=== PATIENT | female | born 1975 | race Caucasian/White ===

== ENCOUNTER → 2017-08-07 13:10 | Outpatient (CLI) | payer BC, SELFPAY ==
[2017-08-07 14:28] LABS: Basophils % 0.6 % (0.1-2.0); Eosinophils # 0.1 K/mm3 (0.0-0.4); Hematocrit 46.6 % (37.0-47.0); Hemoglobin 15.6 g/dL (12.2-16.2); Lymphocytes # 1.8 K/mm3 (0.7-4.5); Lymphocytes % 25.4 K/mm3 (10-50); Mean Corpuscular HGB Conc 33.5 g/dL (31.8-35.4); Mean Corpuscular Hemoglobin 30.6 pg (27.0-31.2); Mean Corpuscular Volume 91.5 fl (81-99); Mean Platelet Volume 7.6 fl (7.4-10.4); Monocytes # 0.4 K/mm3 (0.1-1.0); Monocytes % 5.5 % (1.7-9.3); Neutrophils # 4.8 K/mm3 (1.8-7.8); Neutrophils % 67.5 % (37.0-80.0); Platelet Count 277 K/mm3 (142-424); Red Blood Count 5.09 M/mm3 (4.20-5.40); Red Cell Distribution Width 12.6 % (11.5-17.5); White Blood Count 7.2 K/mm3 (4.8-10.8)
[2017-08-07 15:09] LABS: Alanine Aminotransferase 22 U/L (12-78); Albumin/Globulin Ratio 1.1 (1.1-1.8); Alkaline Phosphatase 96 U/L (46-116); Aspartate Amino Transferase 19 U/L (15-37); Bilirubin,Total 0.3 mg/dL (0.2-1.0); Blood Urea Nitrogen 13 mg/dL (7-18); Calcium 9.1 mg/dL (8.5-10.1); Carbon Dioxide 31 mmol/L (21.0-32.0); Chloride 102 mmol/L (98-107); Creatinine,Serum 0.81 mg/dL (0.55-1.02); Estimated Glomerular Filt Rate 78 ml/min (>60); GFR (African American) 94 ML/MIN (>60); Globulin 3.6 gm/dl (1.3-3.2); Glucose 83 mg/dL (74-106); Sodium 141 mmol/L (136-145); Thyroid Stimulating Hormone 1.92 uIU/ml (0.358-3.740); Total Protein,Serum 7.6 gm/dL (6.4-8.2)
[2017-08-08 20:15] LABS: Vitamin B12 409 pg/mL (232-1245)
[2017-08-12 06:14] LABS: Vitamin D 25 Hydroxy 27.4 ng/mL (30.0-100.0)
== END ==
PROVIDERS: Visit Provider Physician Assistant
DX: I10 Essential (primary) hypertension (principal); R06.02 Shortness of breath; E55.9 Vitamin D deficiency, unspecified; E53.8 Deficiency of other specified B group vitamins; Z13.29 Encounter for screening for other suspected endocrine disorder
CPT/HCPCS: 36415; 80053; 82607; 82652; 84443; 85025

== ENCOUNTER → 2017-08-21 13:25 | Outpatient (CLI) | payer BC, SELFPAY ==
--- NOTE | 2017-08-21 13:39 | CA_ITS ---
PROCEDURE: 2-D M-mode and color Doppler study INDICATIONS FOR THE TEST: Chest pain X COPD Heart Murmur Tobacco Smoking Palpitations Fatigue Syncope Edema HypertensionXDiabetes Mellitus Rheumatic Fever SOB DOEXObesity Hyperlipidemia Family History HD Additional History PATIENT INFORMATION HEIGHT: 66 WEIGHT:172 GENDER: Female B/P:130/80 2-D/M-MODE INTERPRETATION: 2-D MEASUREMENTS OBSERVED VALUES IN CMS Right Ventricular Dimension (RVDd) 2.1 Interventricular Septum (Thickness)(IVsd) .9 Left Ventricular Internal Dimensions(LVIDd) 4.5 Left Ventricular Posterior Wall (Thickness)(LVPWd) 1.0 Aortic Root 2.5 Aortic Cusp Separation 1.8 Left Atrial Dimensions (LAD) 2.5 2D 1. Left atrium is qualitatively mildly enlarged, left ventricle is normal size, there is no concentric left ventricular hypertrophy, visually estimated ejection fraction approximately 50% with no obvious regional wall motion abnormality. 2. The right atrium and right ventricle are normal size and contractility. 3. The aortic valve is minimally thickened and fibrosed. 4. The mitral and tricuspid valve are grossly normal. 5. The pulmonic valve is poorly visualized. 6. No significant pericardial effusion noted. DOPPLER INTERROGATION: Doppler interrogation of the aortic, mitral and tricuspid valvular presence of mild mitral and tricuspid regurgitation, tricuspid and jet velocity is insufficient for calculation of the right ventricular systolic pressure, diastolic parameters are inconclusive. CONCLUSION: 1. Normal left ventricular size, preserved left ventricular systolic function, visually estimated ejection fraction 50% with no obvious regional wall motion abnormality. Diastolic parameters are inconclusive. 2. Mild mitral and tricuspid regurgitation 3. No significant pericardial effusion noted.
== END ==
PROVIDERS: Family Provider Family Medicine; PCP Family Medicine; Visit Provider Family Medicine
DX: R07.9 Chest pain, unspecified (principal)
CPT/HCPCS: 93017; 93306

== ENCOUNTER → 2019-04-22 09:27 | Outpatient (CLI) | payer BC, SELFPAY ==
[2019-04-22 11:09] LABS: Alanine Aminotransferase 8 U/L (12-78); Albumin Level 3.6 gm/dL (3.4-5.0); Albumin/Globulin Ratio 1.2 (1.1-1.8); Alkaline Phosphatase 60 U/L (46-116); Anion Gap 11.1 mEq/L (5-15); Aspartate Amino Transferase 9 U/L (15-37); Bilirubin,Total 0.3 mg/dL (0.2-1.0); Blood Urea Nitrogen 17 mg/dL (7-18); Calcium 8.6 mg/dL (8.5-10.1); Carbon Dioxide 26 mmol/L (21.0-32.0); Chloride 104 mmol/L (98-107); Chol/HDL Ratio 3.1 (1-3.5); Cholesterol 157 mg/dL (140-200); Creatinine,Serum 0.82 mg/dL (0.55-1.02); Estimated Glomerular Filt Rate 76 ml/min (>60); GFR (African American) 92 ML/MIN (>60); Glucose 90 mg/dL (74-106); HDL Cholesterol 50 mg/dL (29-89); LDL Cholesterol 94 mg/dL (0-130); Potassium 4.1 mmoL/L (3.5-5.1); Sodium 137 mmol/L (136-145); Thyroid Stimulating Hormone 1.16 uIU/ml (0.358-3.740); Total Protein,Serum 6.6 gm/dL (6.4-8.2); Triglycerides 67 mg/dL (30-200); VLDL Cholesterol 13 mg/dL (0-40)
[2019-04-24 17:59] LABS: Vitamin D 25 Hydroxy 39.6 ng/mL (30.0-100.0)
[2019-04-24 18:01] LABS: Vitamin B12 584 pg/mL (232-1245)
== END ==
PROVIDERS: Visit Provider Physician Assistant
DX: I10 Essential (primary) hypertension (principal); E53.8 Deficiency of other specified B group vitamins; E55.9 Vitamin D deficiency, unspecified; Z13.220 Encounter for screening for lipoid disorders; Z13.29 Encounter for screening for other suspected endocrine disorder
CPT/HCPCS: 36415; 80053; 80061; 82607; 82652; 84443

== ENCOUNTER → 2019-05-12 08:06 | Outpatient (CLI) | payer BC, SELFPAY ==
--- NOTE | 2019-05-12 08:10 | MM_ITS ---
PROCEDURE: MM DIG SCREENING MAMM BI W/CAD CLINICAL INDICATION: SCREENING History of breast cancer in the patient's maternal aunt. COMPARISON: None, this is baseline study TECHNIQUE: Standard CC and MLO images and 3D Tomosinthisis was obtained. R2 CAD reviewed. FINDINGS: Moderate scattered fibroglandular densities are seen throughout both breast and the findings of bilateral and symmetrical. Nasim images were review showing no suspicious abnormality. There are no suspicious microcalcifications. There are several small nodes in both axilla. IMPRESSION: Moderate diffuse breast density with no suspicious lesions seen BI-RAD Category: 1 Negative FOLLOW-UP: 1YR 1 Year Follow-up (A letter has been sent to the patient regarding results of the study.) Dictated by: Dr. Ankit Gerard MD 05/12/2019 08:[address] Ankit Gerard MD in [place] 05/12/2019 08:52
== END ==
PROVIDERS: PCP Family Medicine; Visit Provider Physician Assistant
DX: Z12.31 Encounter for screening mammogram for malignant neoplasm of breast (principal)
CPT/HCPCS: 77063; 77067

== ENCOUNTER → 2020-04-27 10:36 | Outpatient (CLI) | payer BC, SELFPAY ==
[2020-04-27 12:10] LABS: Alanine Aminotransferase 14 U/L (12-78); Albumin Level 4.4 g/dl (3.5-5.0); Albumin/Globulin Ratio 1.4 (1.1-1.8); Alkaline Phosphatase 71 U/L (38-126); Anion Gap 11.3 mEq/L (5-15); Aspartate Amino Transferase 21 U/L (14-36); Bilirubin,Total 0.6 mg/dl (0.2-1.3); Blood Urea Nitrogen 18 mg/dl (7-17); Calcium 9.7 mg/dl (8.4-10.2); Carbon Dioxide 30 mmol/L (22.0-30.0); Chloride 100 mmol/L (98-107); Estimated Glomerular Filt Rate 68 ml/min (>60); GFR (African American) 82 ML/MIN (>60); Globulin 3.2 g/dL (1.3-3.2); Glucose 93 mg/dl (74-100); Potassium 4.3 mmoL/L (3.5-5.1); Sodium 137 mmol/L (136-145); Total Protein,Serum 7.6 g/dl (6.3-8.2)
[2020-04-27 12:27] LABS: 25-OH Vitamin D, Total 31.8 ng/mL (30-100)
[2020-04-27 13:00] LABS: Vitamin B12 898 pg/mL (239-931)
== END ==
PROVIDERS: Visit Provider Physician Assistant
DX: I10 Essential (primary) hypertension (principal); E53.8 Deficiency of other specified B group vitamins; E55.9 Vitamin D deficiency, unspecified
CPT/HCPCS: 36415; 80053; 82306; 82607

== ENCOUNTER → 2023-01-07 07:19 | Outpatient (CLI) | payer BC, SELFPAY ==
--- NOTE | 2023-01-07 07:31 | CA_ITS ---
FINAL REPORT CLINICAL HISTORY: lle edema, calf pain. edema resolved now COMPARISON: None FINDINGS: DUPLEX VENOUS SONOGRAPHY OF THE LEFT LOWER EXTREMITY Multiple transverse and longitudinal scans were performed of the femoropopliteal deep venous system, with augmentation and compression maneuvers. HISTORY: Pain and edema FINDINGS: Normal phasic flow was noted in the visualized deep venous system. No intraluminal increased echogenicity is noted to suggest thrombus. There is normal compression and augmentation of the venous structures. No abnormal venous collaterals are seen. IMPRESSION: No evidence of deep venous thrombosis of the left lower extremity. Reviewed, Interpreted and Dictated by Ynes Bettencourt MD Transcribed by Liset Coelho Authenticated and [facility]
--- NOTE | 2023-01-07 08:49 | CA_ITS ---
APPROVED REPORT Exam: Exercise Treadmill Technologist: Andie Peterson Ht: 5 ft 6 in Wt: 178 lbs BSA: 1.90 m2 HR: 66 bpm BP: 141/88 mmHg Rhythm: NSR Indications: Shortness of Air, LLE edema, Headaches Medical History Medications: Lisinopril/HCTZ,,,,, Stress Test Details Test: Ari HR Resting HR: 77 bpm Max Heart Rate (APMHR): 173 bpm Max HR Achieved: 149 bpm Target HR (85% APMHR): 147 bpm % of APMHR: 86 Recovery HR: 100 bpm HR response to stress: Normal HR response to stress BP Resting BP: 141.0/88.0 mmHg Max BP: 173.0/84.0 mmHg Recovery BP: 158.0/86.0 mmHg BP response to stress: Normal blood pressure response to stress. ECG Resting ECG: Normal sinus rhythm Stress EC.[address] depression Arrhythmia: None Recovery ECG: Return to baseline within 3 minutes of recovery Recovery Arrhythmia: None Clinical Exercise duration: 09:00 min Highest Stage Achieved: Exercise capacity: 10.1 METs Overall Exercise Capacity for Age: Average Stress ECG Conclusion The patient was able to exercise for a total of 9 minutes, 0 seconds. She achieved a total of 10.1 METS. She has average exercise capacity compared to age and sex matched peers. Test stopped due to leg cramps. She has normal HR and BP response to exercise. Symptoms: No chest pain. Arrhythmias/Ectopy: Rare PVC ST-T Changes: 0.[address] depression Conclusion: Average exercise capacity. ECG stress test findings within normal. GXT only (no imaging). Test Summary REST . . . . . . . Sitting REST . . . . . . . Standing REST 03:32 0.0 0.0 77 . 141/ 88 . . Stage 1 01:00 10.0 1.7 103 . . . . Stage 1 02:00 10.0 1.7 113 . . . . Stage 1 03:00 10.0 1.7 120 . 158/ 80 . . Stage 2 01:00 12.0 2.5 135 . . . . Stage 2 02:00 12.0 2.5 133 . . . . Stage 2 03:00 12.0 2.5 137 . 172/ 80 . . Stage 3 01:00 14.0 3.4 142 . . . . Stage 3 02:00 14.0 3.4 143 . . . . Stage 3 03:00 14.0 3.4 146 . . . Stop exercise at 09:00 RECOVERY 01:00 0.0 0.0 122 . . . . RECOVERY 02:00 0.0 0.0 103 . 173/ 84 . . RECOVERY 03:00 0.0 0.0 99 . 173/ 84 . . RECOVERY 04:00 0.0 0.0 97 . 147/ 79 . . RECOVERY 05:00 0.0 0.0 99 . 158/ 86 . . RECOVERY 05:18 0.0 0.0 95 . 158/ 86 . . Electronically signed by : Deidre Clark MD 01/11/2023 23:16:24
== END ==
PROVIDERS: PCP Family Medicine; Visit Provider Nurse Practitioner Family
DX: R06.02 Shortness of breath (principal); R07.9 Chest pain, unspecified; R60.0 Localized edema
CPT/HCPCS: 93017; 93971

== ENCOUNTER → 2023-01-29 07:56 | Outpatient (CLI) | payer BC, SELFPAY ==
--- NOTE | 2023-01-29 08:02 | CA_ITS ---
APPROVED REPORT EXAM: Comprehensive 2D, Doppler, and color-flow Echocardiogram Distribution Accounting Clerk: Tish Aleman CRT Ht: 5 ft 6 in Wt: 178lbs BSA: 1.90 BP: 162/99 mmHg Indications: Chest Pain, Shortness of Breath, Peripheral Edema, Hypertension/HDD 2D Dimensions LVOT 2.02 cm (M/F) 1.5-2.5 LA Volume 26.30 mL LA Volume Index 13.50 mL/m2 (M/F) 16-34 M-Mode Dimensions RVDd 2.44 cm (0.9-2.6) LA Diam 2.95 cm (1.9-4.0) LVDd 4.38 cm (3.5-5.7) Ao Diam 3.52 cm (2.0-3.7) LVDs 3.16 cm (3.5-5.7) IVSd 1.22 cm (0.6-1.1) PWd 0.75 cm (0.6-1.1) EF (Teich) 54.30% FS 27.90% EDV (Teich) 86.80 mL TAPSE 2.55 (<1.7) ESV (Teich) 39.70 mL LV Diastology E Decel Time 203.00 (160-240 msec) E/A Ratio 1.45 MED E' 11.10 (< 7 cm/sec) MED A' 8.80 cm/s E'/MED E' Ratio 9.29 (>14) LAT E' 11.60 (<10 cm/sec) LAT A' 7.90 cm/s E/LAT E' Ratio 8.89 (>14) Aortic Valve AO Peak GR. 3.40 mmHg Mitral Valve MV A Velocity 71.00 (40-130 cm/s) E/A Ratio 1.45 MV Decel. Time 203.00 (160-240 ms) Pulmonary Valve PV Peak Velocity 112.00 (50-150 cm/s) Tricuspid Valve TR P. Velocity 172.00 cm/s RAP Estimate 10.00 mmHg RVSP 21.80 mmHg Left Ventricle The left ventricle is normal size. The left ventricular systolic function is normal. The left ventricular ejection fraction is within the normal range. There is normal left ventricular wall thickness. There is normal LV segmental wall motion. The left ventricular diastolic function is normal. LVEF is 55%. Right Ventricle The right ventricle is normal size. The right ventricular systolic function is normal. Atria The left atrium size is normal. The right atrium size is normal. There is no Doppler evidence of interatrial shunt. Aortic Valve The aortic valve opens well. There is no aortic valvular stenosis. Trace aortic regurgitation. Mitral Valve The mitral valve is normal in structure. No evidence of mitral valve stenosis. Trace mitral regurgitation. Tricuspid Valve Tricuspid valve leaflets are thin and pliable. Trace tricuspid regurgitation. There is insufficient TR jet to estimate RVSP. Pulmonic Valve The pulmonary valve is normal in structure. Trace pulmonic regurgitation. Great Vessels The aortic root is normal in size. The ascending aorta is normal in size. IVC is normal in size and collapses >50% with inspiration. Pericardium There is no pericardial effusion. Other Information Study Quality: Adequate Conclusion Normal biventricular systolic function. No significant valvular stenosis or regurgitation. Electronically signed by : Deidre Clark MD 01/31/2023 21:48:51
== END ==
PROVIDERS: PCP Family Medicine; Visit Provider Nurse Practitioner Family
DX: R06.02 Shortness of breath (principal); R07.9 Chest pain, unspecified; R60.0 Localized edema
CPT/HCPCS: 93306

== ENCOUNTER 2023-03-18 07:04 | Outpatient (CLI) | payer BC, SELFPAY ==
--- NOTE | 2023-03-18 07:11 | CT_ITS ---
APPROVED REPORT Sales And Leasing Consultant: CLINICAL INDICATION Chest Pain TECHNIQUE Image Acquisition: A 128 slice MDCT scanner ([employer] View) was used for data acquisition. A noncontrast coronary calcium scan was performed. A CT attenuation threshold of 130 Hounsfield units (HU) was used for the detection of calcium in contiguous voxels of 1 sq mm in area to be counted as individual lesions. Bolus tracking in the ascending aorta with a threshold of 180 HU was performed. Immediately afterwards, ECG synchronized cardiac CT was then performed from the cardiac base to apex using retrospective gating with ECG tube current modulation. A total of 85 mL of Isovue 370 mg/mL contrast medium was administered at 5 mL/sec followed by a saline flush using a biphasic injection protocol. A tube voltage of 120 KVp was used. The patient received the following medications prior to the cardiac CT. 100 mg of oral metoprolol The average heart rate at the time of acquisition was 47 bpm and regular. Image Reconstruction Transaxial images were reconstructed at 0.67 mm slide thickness. Data was reviewed interactively on an advanced workstation capable of 2 and 3-dimensional displays in all conventional reconstruction formats, including multiplanar reformations, maximum intensity projections, curved multiplanar reformations, and volume rendered reconstructions. When applicable, selected routine images describing the relevant coronary anatomy and pathology were saved and sent to PACS. Complications None Technical Quality Overall image quality was good. Coronary artery opacification was adequate. Total DLP (Dose-Length Product) is 1748.7 mGy-cm. The reported value represents the total of one or more individual components during the CT acquisition of this date and at this time, and as such, the same value may appear in more than one CT report depending on the interpreting/reporting physicians. COMPARISON None FINDINGS CT Coronary Calcium Scoring LMA (Left Main Artery) = 0 LAD (Left Anterior Descending) = 0 LCX (Left Coronary Circumflex) = 0 RCA (Right Coronary Artery) = 0 Total Calcium Score = 0 using the AJ-130 method. The interpretation of the calcium heart score is based on the following continuum*: 0 = no calcified plaque detected (risk of coronary artery disease is very low ??? less than 5%) 1-10 = calcium detected in extremely minimal levels (risk of coronary diseases is still low ??? less than 10%) 11-100 = mild levels of plaque detected with certainty (mild or minimal narrowing of heart arteries is likely) 101-400 = definite,at least moderate levels of plaque detected (relatively high risk of a heart attack within 3-5 years) >401-999 = extensive levels of plaque detected (high risk of heart attack, high levels of vascular disease are present, high likelihood of at least one significant coronary narrowing) *The calcium heart score quantifies the burden of coronary calcification/plaque in the coronary arteries. The calcium heart score is not able to evaluate the presence or burden of non-calcified (i.e. soft) plaque. There is no identifiable calcification in the aortic valve, mitral annulus or mitral valve, pericardium, or myocardium. Coronary CT Angiography Coronaries have normal origin and proximal course. The coronary arterial system is right dominant. Note: Stenosis is reported as maximum percentage diameter stenosis. Quantitative Stenosis Grading: Left Main (LM): The left main originates normally from the left sinus of Valsalva. The LM trifurcates into the left anterior descending artery, a ramus intermedius, and left circumflex artery. The LM is patent with no evidence of atherosclerosis. Left Anterior Descending (LAD) and Diagonal Bran
[2023-03-18 07:35] VITALS: BMI 27.4
[2023-03-18 07:39] VITALS: BP 129/88; PULSE 78; RESP 17; TEMP 36.6; O2SAT 99
[2023-03-18 07:59] LABS: Chloride 99 mmol/L (98-107); Sodium 135 mmol/L (136-145)
[2023-03-18 08:02] LABS: Blood Urea Nitrogen 17 mg/dl (7-17); Calcium 8.7 mg/dl (8.4-10.2); Carbon Dioxide 30 mmol/L (22.0-30.0); Creatinine Clearance Estimated 106 mL/min (50-200); Estimated Glomerular Filt Rate 77 ml/min (>60); GFR (African American) 93 ML/MIN (>60); Glucose 103 mg/dl (74-100); HCG Qualitative, Serum Negative (Negative)
[2023-03-18 08:39] VITALS: BP 102/69; PULSE 58; RESP 17; O2SAT 99
[2023-03-18 08:47] VITALS: BP 106/69; PULSE 53; RESP 19; O2SAT 99
[2023-03-18 08:55] VITALS: BP 94/63; PULSE 57; RESP 17; O2SAT 98
[2023-03-18 08:58] VITALS: BP 152/81; PULSE 62; RESP 17; O2SAT 100
[2023-03-18 09:21] VITALS: BP 108/71; PULSE 58; RESP 16; O2SAT 99
== END 2023-03-18 09:21 | disposition home or self-care (01) ==
PROVIDERS: PCP Family Medicine; Visit Provider Nurse Practitioner Family
DX: R06.02 Shortness of breath (principal); R07.9 Chest pain, unspecified; Z79.899 Other long term (current) drug therapy
CPT/HCPCS: 75571; 75574; 80048; 84703; Q9967

== ENCOUNTER 2024-10-24 10:02 | Outpatient (CLI) | payer BC, SELFPAY ==
--- NOTE | 2024-10-24 10:12 | MM_ITS ---
PROCEDURE INFORMATION: Exam: MG Bilateral Screening 3D Mammography Exam date and time: 10/24/2024 10:31 AM Age: 48 years old Clinical indication: Screening examination TECHNIQUE: Imaging protocol: Bilateral Screening tomosynthesis and 2D mammography including computer-aided detection (CAD) when performed. COMPARISON: MG MM DIG SCREENING MAMM BI W/CAD 05/12/2019 8:20 AM FINDINGS: MAMMOGRAPHY: Breast composition: There are scattered areas of fibroglandular density. Mass: None. Architectural distortion: None. Calcifications: No suspicious calcifications. Asymmetric density: None. Skin thickening: None. Axillary adenopathy: None. IMPRESSION: No mammographic evidence of malignancy. Annual screening is recommended unless otherwise clinically indicated. ASSESSMENT: BI-RADS Category 1: Negative.
== END 2024-10-24 23:59 | disposition home or self-care (01) ==
LOC: RAD 10:05
PROVIDERS: PCP Family Medicine; Visit Provider Physician Assistant
DX: Z12.31 Encounter for screening mammogram for malignant neoplasm of breast (principal); R92.323 Mammographic fibroglandular density, bilateral breasts
CPT/HCPCS: 77063; 77067

== ENCOUNTER 2025-03-01 08:49 | Outpatient (CLI) | payer BC, SELFPAY ==
[2025-03-01 10:37] LABS: Thyroid Stimulating Hormone 0.75 uIU/mL (0.465-4.68)
[2025-03-01 12:17] LABS: Hepatitis C Ab Qual. W/ RFX NEGATIVE (Negative)
[2025-03-02 04:09] LABS: Hepatitis B Surface Antigen Negative (Negative)
[2025-03-02 05:39] LABS: Testosterone,Total 24 ng/dL (4-50)
[2025-03-02 09:38] LABS: FSH 7.1 mIU/mL (.); LH 7.3 mIU/mL (.)
== END 2025-03-01 23:59 | disposition home or self-care (01) ==
LOC: LAB 08:49
PROVIDERS: PCP Family Medicine; Visit Provider Obstetrics & Gynecology
DX: N93.9 Abnormal uterine and vaginal bleeding, unspecified (principal); Z11.3 Encounter for screening for infections with a predominantly sexual mode of transmission; I10 Essential (primary) hypertension
CPT/HCPCS: 36415; 82670; 83001; 83002; 84144; 84403; 84443; 86803; 87340; 87389